=== PATIENT | male | born 1945 ===

== ENCOUNTER 2021-06-30 07:23 | Day surgery (SDC) | payer OTHER | END 2021-06-30 14:00 | disposition home or self-care (01) | LOC: AMB-ENDOS 07:23 | PROVIDERS: ATTEND Colon & Rectal Surgery | DX: D12.3 Benign neoplasm of transverse colon (principal); K64.0 First degree hemorrhoids; Z20.822 Contact with and (suspected) exposure to COVID-19 ==

== ENCOUNTER → 2023-06-05 11:47 | Outpatient (CLI) | payer OTHER ==
[2023-06-05 12:57] LABS: HEMATOCRIT 40.9 % (39.0-48.0); HEMOGLOBIN 14.3 g/dL (13-16.00); MEAN CELL VOLUME 96.9 fL (80.0-100.00); MEAN CORPUSCULAR HEMOGLOBIN 33.9 pg (27.00-32.0); PLATELET COUNT 182 K/uL (150-450); RED BLOOD COUNT 4.22 M/uL (4.00-6.00); RED CELL DISTRIBUTION WIDTH 14.7 % (11.5-14.5)
[2023-06-05 13:02] LABS: PH,URINE 6.5 (5.0-8.0); URINE APPEARANCE Clear; URINE BILIRRUBIN Negative (NEGATIVE); URINE COLOR Yellow; URINE GLUCOSE Negative (NEGATIVE); URINE LEUKOCYTE Negative; URINE NITRATE Negative; URINE PROTEIN Negative (NEGATIVE); URINE UROBILINOGEN 0.2 E.U./dl
[2023-06-05 13:05] LABS: URINE BACTERIA 23.9 uL (0.0-1933); URINE RBC 29.3 uL (0.0-20.8); URINE WBC 7.4 uL (0.0-23.2)
[2023-06-05 13:21] LABS: URINE BLOOD TRACE; URINE EPITHELIAL CELLS 1.3 uL (0.0-38.8)
[2023-06-05 13:31] LABS: INR 1.05; PARTIAL THROMBOPLASTIN TIME 25.6 SECONDS (22.0-34.0)
[2023-06-05 13:37] LABS: CALCIUM 9.8 mg/dL (8.5-10.1); CREATININE SERUM 0.92 mg/dL (0.70-1.30); GFR 79.57; POTASSIUM 4.01 mEq/L (3.5-5.1)
== END | disposition home or self-care (01) ==
LOC: LAB 11:47
PROVIDERS: ATTEND Surgery
DX: N25.9 Disorder resulting from impaired renal tubular function, unspecified (principal); E29.1 Testicular hypofunction; N52.9 Male erectile dysfunction, unspecified